=== PATIENT | male | born 1940 | race Caucasian/White ===

== ENCOUNTER → 2017-12-29 | Outpatient (CLI) | payer MEDICARE, BC ==
[2017-12-29 09:05] LABS: Albumin 4.7 g/dL (3.5-5.0); Calcium 9.1 mg/dL (8.4-10.2); Potassium 4.4 mmol/L (3.5-5.1); Total Bilirubin 0.7 mg/dL (0.2-1.3)
== END | disposition home or self-care (01) ==
LOC: LABWHC1 08:10
PROVIDERS: ATTEND Internal Medicine Cardiovascular Disease
DX: I10 Essential (primary) hypertension (principal); E78.5 Hyperlipidemia, unspecified
CPT/HCPCS: 36415; 80053; 80061

== ENCOUNTER → 2018-11-04 | Outpatient (CLI) | payer MEDICARE, BC ==
[2018-11-04 15:10] LABS: Prothrombin Time 10.8 sec (9.0-12.0)
== END ==
LOC: LABWHC1 13:55
PROVIDERS: ATTEND Dentist Oral and Maxillofacial Surgery
DX: D68.9 Coagulation defect, unspecified (principal)
CPT/HCPCS: 36415; 85610

== ENCOUNTER → 2019-03-01 | Outpatient (CLI) | payer MEDICARE, BC ==
[2019-03-01 08:52] LABS: Basophils % (A) 1 %; Eosinophils # (A) 0.2 k/uL (0-0.7); Eosinophils % (A) 3 %; HCT 43.7 % (39.0-53.0); HGB 15.2 gm/dL (13.0-17.5); Lymphocytes # (A) 1.1 k/uL (1.0-4.8); Lymphocytes % (A) 19 %; MCH 32.5 pg (25.0-35.0); MCHC 34.7 g/dL (31.0-37.0); MCV 93.7 fL (80.0-100.0); Mean Platelet Volume 6.9; Monocytes # (A) 0.3 k/uL (0-1.0); Monocytes % (A) 6 %; Neutrophils # (A) 3.9 k/uL (1.3-7.7); Neutrophils % (A) 69 %; Platelet Count 142 k/uL (150-450); Poikilocytosis Slight; RBC 4.66 m/uL (4.30-5.90); WBC 5.6 k/uL (3.8-10.6)
[2019-03-01 17:46] LABS: ALT 24 U/L (10-49); AST 25 U/L (14-35); Albumin/Globulin Ratio 2.14 (1.60-3.17); Alkaline Phosphatase 64 U/L (41-126); Calcium 9.1 mg/dL (8.7-10.3); Carbon Dioxide 24.2 mmol/L (21.6-31.8); Chloride 103 mmol/L (96-109); Cholesterol 191 mg/dL (0-200); Globulin 2.2 g/dL (1.6-3.3); Glucose 135 mg/dL (70-110); Sodium 140 mmol/L (135-145); Total Bilirubin 0.8 mg/dL (0.3-1.2); Total Protein 6.9 g/dL (6.2-8.2)
== END | disposition home or self-care (01) ==
LOC: LABWHC1 08:19
PROVIDERS: ATTEND Internal Medicine Cardiovascular Disease
DX: I10 Essential (primary) hypertension (principal); I25.10 Atherosclerotic heart disease of native coronary artery without angina pectoris; E78.5 Hyperlipidemia, unspecified
CPT/HCPCS: 36415; 80053; 80061; 83721; 85025

== ENCOUNTER → 2019-08-18 | Outpatient (CLI) | payer MEDICARE, BC ==
--- NOTE | 2019-08-18 19:44 | CONS ---
CONSULTATION DATE OF SERVICE: 08/18/2019 This patient is a 79-year-old gentleman who has been evaluated in [facility] for possible obstructive sleep apnea-hypopnea syndrome. HISTORY OF PRESENT ILLNESS/SLEEP-WAKE EVALUATION: Patient's usual sleep schedule is from 10 p.m. until around 5:30 a.m. Usually no problems with falling asleep. No TV in bedroom. For the last several years, the patient has been trying to sleep on a recliner because when he sleeps in bed his nose is closing and he has difficulty breathing. According to his , he snores. He wakes up from sleep once with nocturia, usually in the morning hours, and then he has difficulties falling asleep again after that. Occasionally he takes naps during the day. [place] Sleepiness Scale is 3. PAST MEDICAL HISTORY: Past medical history is positive for: 1. Hypertension. 2. Acid reflux. 3. Macular degeneration. 4. DVT. 5. Prostate carcinoma. 6. Carpal tunnel syndrome. 7. Pneumonia. 8. Coronary artery disease. PAST SURGICAL HISTORY: 1. Prostatectomy for cancer treatment in 1997. 2. Stent insertion to the heart in 1998. 3. Surgery for carpal tunnel syndrome bilaterally. 4. Arthroscopic meniscectomy on right knee and left knee. 5. Bilateral cataractectomy. MEDICATIONS: 1. Lopressor. 2. Omeprazole. 3. Nifedipine. 4. Centrum Silver. 5. Chromagen. 6. Vitamin D3. 7. Aspirin. 8. Eye vitamins. 9. Areds2 formula. 10.Ipratropium nasal spray. 11.Hydrochlorothiazide. 12.Montelukast. SOCIAL HISTORY: Positive for smoking about 2 packs a day for 15 years. Quit 25 years ago. Alcohol consumption none at the present time. REVIEW OF SYSTEMS: Awakenings from sleep with difficulties reinitiating sleep again. FAMILY HISTORY: Hypertension, heart problems, sinus problems, snoring, pneumonia, headaches, cancer, acid reflux. PHYSICAL EXAMINATION: GENERAL: A pleasant gentleman without distress. VITAL SIGNS: BP 145/65, HR 72, RR 16, height 5 feet 3-1/2 inches, weight 222.4 pounds, body mass index 38.7, temperature 97.8, oxygen saturation at room air 96%. HEENT: PERRLA, EOMI. Evaluation of oropharynx showed tongue protrudes midline. Extremely low position of soft palate. Mallampati IV. Slight restriction of nasal breathing. NECK: Supple. No JVD. Thyroid is not palpable. Wide neck; 18-3/4 inches in circumference. LUNGS: Clear to percussion and to auscultation. Good air exchange. No wheezing or rhonchi. HEART: S1, S2 regular. No murmurs, gallops or rubs. ABDOMEN: Slightly obese. EXTREMITIES: One plus bilateral ankle edema. IMPRESSION: 1. Snoring, awakenings from sleep, extremely low position of soft palate, wide neck; obstructive sleep apnea-hypopnea syndrome. 2. Obesity; body mass index 38.7. 3. Hypertension. 4. Coronary artery disease, status post stent insertion. 5. Acid reflux. 6. History of prostate carcinoma, status post prostatectomy. 7. Status post bilateral knee surgery. 8. Status post bilateral surgery for carpal tunnel syndrome. 9. History of macular degeneration. 10.Status post surgical treatment for right eye retinal detachment in 2004. PLAN: 1. Polysomnography for evaluation of patient's breathing during sleep. 2. CPAP/BiPAP titration if sleep study confirms obstructive sleep apnea-hypopnea syndrome. 3. Preferable position during sleep on the side. 4. No driving if patient feels any sleepiness. 5. I will see patient for follow up visit to explain results of testing and following plan. Thank you very much for referring this patient for consultation. Sincerely, Angel Walker MD, PhD, FAASM Diplomat of [employer] [facility] [employer] [place] MMODL / IJN: [id number] /
== END | disposition home or self-care (01) ==
LOC: SLEEP 14:02
PROVIDERS: ATTEND Internal Medicine
DX: G47.33 Obstructive sleep apnea (adult) (pediatric) (principal); E66.9 Obesity, unspecified; I10 Essential (primary) hypertension; I25.10 Atherosclerotic heart disease of native coronary artery without angina pectoris; K21.9 Gastro-esophageal reflux disease without esophagitis; Z85.46 Personal history of malignant neoplasm of prostate; Z68.38 Body mass index [BMI] 38.0-38.9, adult; Z95.828 Presence of other vascular implants and grafts; Z90.79 Acquired absence of other genital organ(s); Z96.653 Presence of artificial knee joint, bilateral; Z98.890 Other specified postprocedural states; Z86.69 Personal history of other diseases of the nervous system and sense organs
CPT/HCPCS: 99211

== ENCOUNTER → 2019-12-06 | Outpatient (CLI) | payer MEDICARE, BC ==
[2019-12-06 18:12] LABS: Chol/HDL Ratio 5.42
== END | disposition home or self-care (01) ==
LOC: LABWHC1 08:22
PROVIDERS: ATTEND Internal Medicine Cardiovascular Disease
DX: I25.10 Atherosclerotic heart disease of native coronary artery without angina pectoris (principal); E78.5 Hyperlipidemia, unspecified
CPT/HCPCS: 36415; 80061; 83721; 84450; 84460

== ENCOUNTER → 2019-12-08 | Outpatient (CLI) | payer MEDICARE, BC ==
--- NOTE | 2019-12-08 12:45 | PN ---
PROGRESS NOTE DATE OF SERVICE: 12/08/2019 A 79-year-old gentleman who has been followed in the Sleep Center to discuss results of sleep study and following plan. Recently patient had polysomnogram done for evaluation of patient breathing during the sleep because of suspicion of obstructive sleep apnea-hypopnea syndrome. Sleep study did not show significant respiratory abnormalities during the sleep, but patient was not able to sleep in bed and he slept only on a recliner during the sleep study. Sleep efficiency is slightly decreased to 81%, and apnea-hypopnea index was only 0.4, which is absolutely normal with oxygen level above 90.3%, which is also normal, but again patient was in a recliner. Some periodic limb movements have been documented, but very minimal, 10 times per hour. [place] Sleepiness Scale today is 2, which is normal. Patient believes that he has some allergy problems which create problems with breathing through the nose. MEDICATIONS: Lopressor, omeprazole, nifedipine, Coumadin, baby aspirin, hydrochlorothiazide, montelukast, , Mucinex, ceftazidime. PHYSICAL EXAM: Patient in no distress, BP 147/82, HR 76, RR 14, temperature 97.2, oxygen saturation at room air 93%. OROPHARYNX: Extremely low position of soft palate, Mallampati 4, wide neck. ABDOMEN: Obese. EXTREMITIES: Very minimal up to 1+ ankle edema. NECK: Supple, no JVD. Thyroid is not palpable. LUNGS: Clear to percussion and to auscultation. Good air exchange. No wheezing or rhonchi. HEART: S1, S2 regular. No murmurs, gallops, or rubs. FRONT DESK ATTENDANT: Awake, alert, and oriented X3. Cranial nerves 2 to 7 intact. There is no fasciculation or atrophy. noted. No focal deficits observed. IMPRESSION: 1. No significant respiratory abnormalities during sleep while patient is on a recliner. 2. Obesity. 3. Hypertension. 4. Coronary artery disease, status post stent insertion. 5. Acid reflux. 6. History of prostate carcinoma, status post prostatectomy. 7. Status post bilateral knee surgery. 8. Status post bilateral surgery for carpal tunnel syndrome. 9. History of macular degeneration. 10.Status post surgical treatment for right eye retinal detachment in 2004. 11.Status post left arm skin cancer removed. PLAN: 1. I discussed with the patient the possibility to repeat sleep test possibly at home while he is asleep in bed. For now patient to wants to wait with that until he will decide what to do about his allergy. 2. Sleep hygiene with regular time in bed for 7-1/2 to 8 hours. 3. Losing weight. 4. No driving if feeling sleepiness. Thank you very much for allowing me to participate in the management of your patient. Sincerely, Angel Walker MD, PhD, FAASM Diplomat of [employer] [facility] [place] MMODL / [place]: [id number] /
== END | disposition home or self-care (01) ==
LOC: SLEEP 11:32
PROVIDERS: ATTEND Internal Medicine
DX: G47.33 Obstructive sleep apnea (adult) (pediatric) (principal); E66.9 Obesity, unspecified; I10 Essential (primary) hypertension; I25.10 Atherosclerotic heart disease of native coronary artery without angina pectoris; K21.9 Gastro-esophageal reflux disease without esophagitis; Z85.46 Personal history of malignant neoplasm of prostate; Z90.79 Acquired absence of other genital organ(s); Z96.653 Presence of artificial knee joint, bilateral; Z85.828 Personal history of other malignant neoplasm of skin; Z86.69 Personal history of other diseases of the nervous system and sense organs; Z98.890 Other specified postprocedural states; Z79.82 Long term (current) use of aspirin; Z79.01 Long term (current) use of anticoagulants; Z79.899 Other long term (current) drug therapy

== ENCOUNTER → 2020-12-31 | Outpatient (CLI) | payer MEDICARE, BC ==
[2020-12-31 11:26] LABS: INR 1.1 (<1.2); Prothrombin Time 11.3 sec (9.0-12.0)
== END | disposition home or self-care (01) ==
LOC: LABWHC1 09:22
PROVIDERS: ATTEND Dentist Oral and Maxillofacial Surgery
DX: D68.9 Coagulation defect, unspecified (principal)
CPT/HCPCS: 36415; 85610

== ENCOUNTER → 2022-07-10 | Outpatient (CLI) | payer MEDICARE, BC ==
--- NOTE | 2022-07-10 13:18 | CT ---
EXAMINATION TYPE: CT brain wo con DATE OF EXAM: 07/10/2022 COMPARISON: 11/07/2015 HISTORY: headache CT DLP: 1174 mGycm Automated exposure control for dose reduction was used. FINDINGS: Mild to moderate generalized degenerative changes with slightly greater frontal lobe component. No ac chinmay hemorrhage or mass effect. No midline shift. Calvarium intact. Vein low attenuation in the white matter. Sella turcica is normal. Orbits are symmetric. Sinuses are clear. IMPRESSION: [id number] DEGENERATIVE CHANGE WITH FAINT LOW-ATTENUATION WHITE MATTER MULTIPLE REMOTE WHITE MA TTER ISCHEMIA.
== END | disposition home or self-care (01) ==
LOC: RADCTMAIN 12:33
PROVIDERS: ATTEND Family Medicine
DX: G31.9 Degenerative disease of nervous system, unspecified (principal)
CPT/HCPCS: 70450

== ENCOUNTER → 2024-01-21 | Outpatient (CLI) | payer MEDICARE, BC ==
--- NOTE | 2024-01-21 21:32 | US ---
EXAMINATION TYPE: US abdomen complete DATE OF EXAM: 01/21/2024 COMPARISON: NONE CLINICAL INDICATION: Male, 83 years old with history of R10.84 ABD PAIN; pain exam limited due to bod y habitus TECHNIQUE: Multiple sonographic images of the abdomen are obtained. FINDINGS: EXAM MEASUREMENTS: Liver Length: 20.2 cm Gallbladder Wall: .2 cm CBD: .6 cm Spleen: 12.7 cm Right Kidney: 9.9 x 4.6 x 4.5 cm Left Kidney: 11.1 x 5.1 x 3.9 cm GOLF PROFESSIONAL NOTES: Pancreas: Obscured by bowel gas Liver: Increased attenuation be compatible with moderate fatty infiltration. Hepatomegaly Gallbladder: No stones seen Evidence for sonographic Lindo's sign: no CBD: wnl Spleen: wnl Right Kidney: No hydronephrosis or masses seen Left Kidney: Multiple cysts seen, largest upper pole appears simple measuring 2.7 x 3.0 x 3.3 cm. Upper IVC: Obscured by overlying bowel gas Abd Aorta: Obscured by overlying bowel gas IMPRESSION: 1. Hepatomegaly with moderate fatty infiltration of liver. 2. Left renal cyst superior pole
== END | disposition home or self-care (01) ==
LOC: RADUSWWP 07:06
PROVIDERS: ATTEND Family Medicine
DX: K76.0 Fatty (change of) liver, not elsewhere classified (principal); N28.1 Cyst of kidney, acquired; R16.0 Hepatomegaly, not elsewhere classified
CPT/HCPCS: 76700

== ENCOUNTER → 2024-08-03 | Outpatient (CLI) | payer MEDICARE, BC ==
--- NOTE | 2024-08-03 15:23 | XR ---
EXAMINATION TYPE: XR lumbar spine 3V DATE OF EXAM: 08/03/2024 Comparison: None Clinical History: 84-year-old male M54.50 LOW BACK PAIN, UNSPECIFIED Findings: 5 lumbar type vertebral bodies. There is bridging endplate spondylosis throughout the spine. Moderate to severe degenerative disc disease and bulky endplate spondylosis L4-L5 with a grade 1 anterolisthe sis here at this level. Severe hypertrophic facet arthropathy lower lumbar spine. Vertebral body heig hts are preserved. Multiple surgical clips in the pelvis. Impression: 1. 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 Clinically correlate. 2. Moderate to severe degenerative disc disease L4-L5 with bulky bridging endplate spondylosis. 3. Hypertrophic facet arthropathy mid to lower lumbar spine with grade 1 anterolisthesis L4-L5. 4. No vertebral compression collapse. [facility], , 08/03/2024 3:20 PM
== END | disposition home or self-care (01) ==
LOC: RADXRMAIN 13:30
PROVIDERS: ATTEND Family Medicine
CPT/HCPCS: 72100